=== PATIENT | female | born 1970 | race Caucasian/White ===

== ENCOUNTER 2018-02-25 17:56 | Emergency (ER) | payer OTHER, SELFPAY ==
[2018-02-25 17:56] VITALS: BP 137/79; PULSE 106; RESP 16; TEMP 36.9; O2SAT 99; BMI 26.6
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
[2018-02-25 18:13] VITALS: BP 150/70; PULSE 88; RESP 14; O2SAT 96
[2018-02-25 18:53] VITALS: BP 134/71; PULSE 84; RESP 14; O2SAT 98
== END 2018-02-25 18:58 | disposition home or self-care (01) ==
LOC: ED 18:53
PROVIDERS: Emergency Provider Emergency Medicine
DX: S00.33XA Contusion of nose, initial encounter (principal); W50.0XXA Accidental hit or strike by another person, initial encounter; Y93.89 Activity, other specified; Y92.199 Unspecified place in other specified residential institution as the place of occurrence of the external cause; Y99.0 Civilian activity done for income or pay
CPT/HCPCS: 70150; 99282